=== PATIENT | female | born 1990 | race Caucasian/White ===

== ENCOUNTER 2025-02-08 14:56 | Inpatient (IN) | payer MEDICAID, SELFPAY ==
--- OUTSIDE RECORDS SUMMARY | 2025-02-08 15:03 | XMS_ITS ---
Author Name Auto Generated, Auto Generated Organization [facility] Address [address] [place] [address] Phone [phone] Care Team Providers Care Automobile Inspector Name Role Phone Artemio Esquivel Attending Physician Lita Fritz Unavailable [phone] Intake, Staff Admitting Physician Unavailable Functional Status No Results Mental Status No Results Assessments TueFebruary 08 15:03:09 EDT 2024: No Assessment Information Health Concerns Allergies and Intolerances No Known Allergies Encounters Program Name Primary Diagnosis Admission Date/Time Dis charge Date/Time Admit-Rehabilitation Major depressive disorder, recurrent severe without psychotic features TueMay 07 17:18:00 EDT 2023Jun 22 19:34:00 EDT 2023 Pre-Admit Adult Outpatient MH Roz Jul 21 15:28:00 EST 2022 Sat Jul 21 23:02:00 EST 2023 Treatment Plan Goals Over a 12 month period, kierra mcgill will improve her ability to manage basic care needs, and will develop an effective ability to manage physical health within the next 12 months Interventions food safety coordinator II/[facility]: will provide behavioral health counseling to assist client in identifying problematic symptoms and implementing effective coping mechanisms, consultation with team members to discuss, advocate, and participate in organizing clients care, crisis intervention services for helping client with managing escalation of symptoms and utilize safety plans. Skills training to help client develop new skills to cope with life stressors/manage mental health symptoms effectively.For 30 minutes, 2 X per month, for 12 months [facility] will provide skills training to help client with managing mental health symptoms/teach client how to utilize effective coping mechanisms for 60 minutes, 4 X per month, for 12 months Garment Parts Cutter Hand will provide peer support services to develop life skills through mentorship when client requests such services. Problems Active Concerns * Major depressive disorder, recurrent episode, unspecified* Code: [id number] * Start Date: * End Date: * Text: Social History Social History Observation Description Date Smoking Status Current Every Day Smoker TueMay 16 08:00:00 EDT 2023 Smoking Status Current Every Day Smoker TueMay 16 08:00:00 EDT 2023 Smoking Status Current Every Day Smoker TueMay 16 08:00:00 EDT 2023 Smoking Status Current Every Day Smoker TueMay 16 08:00:00 EDT 2023 Sex Female Sat Sep 11 07:00 :00 EST 1990 Goals Section Goals Over a 12 month period, kierra mcgill will improve her ability to manage basic care needs, and will develop an effective ability to manage physical health within the next 12 months Reason for Referral Past Medical History
[2025-02-08 15:25] VITALS: BP 127/79; PULSE 94; RESP 18; TEMP 36.9; O2SAT 97; BMI 28.3
[2025-02-08] MEDS: clonazePAM 0.5 MG TABLET PO ×2 (16:05→21:33)
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
--- NOTE | 2025-02-08 17:50 | PC.NURSE ---
Patient seen by hospitalist on 02/08/25
[2025-02-08] MEDS: Nicotine Polacrilex 2 MG GUM 4 MG BUCCAL (21:33)
[2025-02-08] MEDS: Divalproex Sodium ER 500 MG TAB.ER.24H 1000 MG PO (21:33)
[2025-02-08] MEDS: Gabapentin 100 MG CAPSULE PO (21:33)
[2025-02-08] MEDS: traZODone HCL 50 MG TABLET PO (21:33)
[2025-02-08] MEDS: Apixaban 5 MG TABLET PO (21:33)
[2025-02-08 21:42] VITALS: BP 116/69; PULSE 93; RESP 15; TEMP 36.8; O2SAT 100
[2025-02-09 07:15] VITALS: BP 105/74; PULSE 96; RESP 14; TEMP 36.8; O2SAT 95
[2025-02-09] MEDS: Nicotine 21 MG PATCH.TD24 TRANSDERMA (07:21)
[2025-02-09] MEDS: Nicotine Polacrilex 2 MG GUM 4 MG BUCCAL ×5 (07:23→21:04)
[2025-02-09 09:00] VITALS: BP 124/64; PULSE 92
[2025-02-09] MEDS: dilTIAZem HCL CD 120 MG CAP.ER.DEG PO (09:00)
[2025-02-09] MEDS: Spironolactone 25 MG TABLET PO (09:00)
[2025-02-09] MEDS: Apixaban 5 MG TABLET PO ×2 (09:00→22:02)
[2025-02-09] MEDS: clonazePAM 0.5 MG TABLET PO ×2 (09:00→22:02)
[2025-02-09] MEDS: Gabapentin 100 MG CAPSULE PO ×3 (09:00→22:02)
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
[2025-02-09 10:50] LABS: Cholesterol 159 mg/dL (<200); HDL Cholesterol 45 mg/dL (>40); LDL Cholesterol Calculated 91 mg/dL (<100); Triglycerides 116 mg/dL (<150)
[2025-02-09 11:05] LABS: Free T4 (Free Thyroxine) 1.07 ng/dL (0.71-1.85); Thyroid Stimulating Hormone 0.09 uIU/mL (0.32-4.0)
[2025-02-09] MEDS: hydrOXYzine HCL 25 MG TABLET PO (15:28)
[2025-02-09 20:00] VITALS: BP 108/64; PULSE 97; RESP 16; TEMP 36.8; O2SAT 97
[2025-02-09] MEDS: fluPHENAZine HCl 5 MG TABLET PO (22:01)
[2025-02-09] MEDS: traZODone HCL 50 MG TABLET PO (22:02)
[2025-02-09] MEDS: Divalproex Sodium ER 500 MG TAB.ER.24H 1000 MG PO (22:02)
[2025-02-10 07:21] VITALS: BP 149/63; PULSE 117; TEMP 36.4; O2SAT 100
[2025-02-10] MEDS: Nicotine 21 MG PATCH.TD24 TRANSDERMA (07:32)
[2025-02-10] MEDS: Nicotine Polacrilex 2 MG GUM 4 MG BUCCAL ×5 (07:33→21:12)
[2025-02-10 09:14] VITALS: BP 120/74; PULSE 74
[2025-02-10] MEDS: dilTIAZem HCL CD 120 MG CAP.ER.DEG PO (09:14)
[2025-02-10] MEDS: clonazePAM 0.5 MG TABLET PO ×2 (09:14→21:12)
[2025-02-10] MEDS: Apixaban 5 MG TABLET PO ×2 (09:14→21:12)
[2025-02-10] MEDS: Gabapentin 100 MG CAPSULE PO ×3 (09:14→21:13)
[2025-02-10] MEDS: Spironolactone 25 MG TABLET PO (09:14)
[2025-02-10] MEDS: Acetaminophen 325 MG TABLET 650 MG PO (09:28)
[2025-02-10 12:23] LABS: Estimated Average Glucose 111 mg/dL; Hemoglobin A1C 136.3993 umol/L; Hemoglobin A1c % 5.5 % (<6.0); Total Hemoglobin (HGBA1C) 3747.5332 umol/L
[2025-02-10 12:58] LABS: Folate 8.9 ng/mL (> or = 4.0); Vitamin B12 268 pg/mL (200-900)
--- NOTE | 2025-02-10 14:34 | PC.NURSE ---
Hospitalist consult order placed for low TSH. RN sent [employer] message to Dr. Camacho with update on this and patient's reported concern for ongoing swelling in bilat hands/ankles. Message later received from Dereck COONEY reporting consultation not needed as Free T4 is WNL. Advised to have patient follow up in 3 months outpatient to have TSH and T4 labs rechecked. No need for intervention, just observe . Message forwarded to Teresa Holder APRN. Message received.
--- NOTE | 2025-02-10 15:02 | P.EN_ITS ---
Event Note Date of Service: 02/10/25 Event Note: Pt is a 34-year-old female admitted to [facility] unit with hospitalist consult for medication adjustment for low TSH and normal free T4. Patient's labs significant for TSH low at 0.09 but free T4 WNL at 1.07. As free T4 is WNL, currently pt does not need any medication treatment for these lab results, though should follow up outpatient. If pt's TSH continues to be low and T4 is also low, pt should be worked up for pituitary gland dysfunction. If TSH is l ow/undetectable and T4 is high, pt should be worked up for hyperthyroidism. As it stands now, low TSH possible normal variant or subclinical hyperthyroidism. Pt should followup with PCP for repeat labs in 2-4 months time. Time Spent With Patient Time: Total time managing care of this patient today ____ minutes.
[2025-02-10 20:26] VITALS: BP 121/73; PULSE 118; RESP 16; TEMP 36.9; O2SAT 98
[2025-02-10] MEDS: traZODone HCL 50 MG TABLET PO (21:12)
[2025-02-10] MEDS: fluPHENAZine HCl 5 MG TABLET PO (21:12)
--- NOTE | 2025-02-10 21:47 | HO.PSYCHPN ---
Subjective Subjective Date of Service: 02/10/25 Reason For Visit: Delusional Disorder Subjective Notes: Conditional Voluntary Interim History: Pt slept through the night. Pt continues to present with delusion of being Chano. Going through spiritual journey, looking for followers who she reports know about her and are waiting for her. No behavioral concerns. No intrusive behaviors towards others. intermittently accepting medications. Medication Compliance: Yes Mental Status Exam Mental Status Exam Narrative: Appearance: wearing hospital gown, poor hygiene, in NAD Behavior: calm, cooperative Psychomotor: no agitation or retardation noted Speech: clear, normal rate/rhythm/volume, spontaneous TP: tangential, no loose associations TC: wanting to leave soon but also hoping to rest Mood: fine Affect: intense look at times, but congruent SI:denies HI: denies VH/AH: appears internally preoccupied Delusions: holiness/grandiose delusions Insight/judgment: impaired x 2. Memory/cog:alert, oriented x 4. Diagnostics Vital Signs (24Hr): Vital Signs - 24 hr 02/10/25 07:21 02/10/25 09:14 02/10/25 09:14 Temperature 97.5 F Pulse Rate 117 H 74 Respiratory Rate Blood Pressure 149/63 H 120/74 120/74 Pulse Oximetry 100 Oxygen Delivery Method Room Air 02/10/25 20:26 Temperature 98.4 F Pulse Rate 118 H Respiratory Rate 16 Blood Pressure 121/73 Pulse Oximetry 98 Oxygen Delivery Method Room Air BMI result Body Mass Index 28.3 Labs Labs: Laboratory Results - last 48 hr 02/09/25 02/10/25 09:20 11:48 Estimat Average Glucose 111 Hemoglobin A1c % 5.5 Triglycerides 116 Cholesterol 159 LDL Cholesterol, Calc 91 HDL Cholesterol 45 Vitamin B12 268 Folate 8.9 TSH 0.09 L Free T4 1.07 Medications Medications Current Medications Acetaminophen (Acetaminophen 325 Mg Tablet) 650 mg PO Q6H PRN PRN Reason: Headache/Pain, Scale 1-10 Last Admin: 02/10/25 09:28 Dose: 650 mg Al Hydroxide/Mg Hydroxide (Magnesium Hydrox/Alum Hydrox 30 Ml Oral.Susp) 30 ml PO Q6H PRN PRN Reason: Heartburn/Nausea Apixaban (Apixaban 5 Mg Tablet) 5 mg PO BID EMELINA Last Admin: 02/10/25 21:12 Dose: 5 mg Clonazepam (Clonazepam 0.5 Mg Tablet) 0.5 mg PO BID [facility] Last Admin: 02/10/25 21:12 Dose: 0.5 mg Diltiazem HCl (Diltiazem Hcl Cd 120 Mg Cap.Er.Deg) 120 mg PO DAILY [facility]; Protocol Last Admin: 02/10/25 09:14 Dose: 120 mg Divalproex Sodium (Divalproex Sodium Er 500 Mg Tab.Er.24h) 1,000 mg PO BEDTIME EMELINA Last Admin: 02/10/25 21:15 Dose: Not Given Fluphenazine HCl (Fluphenazine Hcl 5 Mg Tablet) 5 mg PO BEDTIME EMELINA Last Admin: 02/10/25 21:12 Dose: 5 mg Gabapentin (Gabapentin 100 Mg Capsule) 100 mg PO TID [facility] Last Admin: 02/10/25 21:13 Dose: 100 mg Hydroxyzine HCl (Hydroxyzine Hcl 25 Mg Tablet) 25 mg PO Q6H PRN PRN Reason: mild anxiety Last Admin: 02/09/25 15:28 Dose: 25 mg Magnesium Hydroxide (Milk Of Magnesia 30 Ml Oral.Susp) 30 ml PO DAILY PRN PRN Reason: Constipation Nicotine (Nicotine 21 Mg Patch.Td24) 21 mg TRANSDERMA DAILY PRN PRN Reason: Nicotine Cravings Last Admin: 02/10/25 07:32 Dose: 21 mg Nicotine Polacrilex (Nicotine Polacrilex 2 Mg Gum) 4 mg BUCCAL Q2H PRN PRN Reason: Nicotine Cravings Last Admin: 02/10/25 21:12 Dose: 4 mg Spironolactone (Spironolactone 25 Mg Tablet) 25 mg PO DAILY [facility]; Protocol Last Admin: 02/10/25 09:14 Dose: 25 mg Trazodone HCl (Trazodone Hcl 50 Mg Tablet) 50 mg PO BEDTIME MRX1 PRN PRN Reason: Insomnia Last Admin: 02/10/25 21:12 Dose: 50 mg Allergies Allergies Allergy/AdvReac Type Severity Reaction Status Date / Time Penicillins Allergy Unknown Verified 02/08/25 15:04 sulfamethoxazole Allergy Unknown Verified 02/08/25 15:04 [From Bactrim] trimethoprim [From Bactrim] Allergy Unknown Verified 02/08/25 15:04 Assessment & Plan Assessment & Plan (1) Schizoaffective disorder, bipolar type: Status: Acute Code(s): F25.0 - Schizoaffective disorder, bipolar type Plan Homa is a 34 year-old trans female who was brought on sect 12a by police to [facility] due to presenting with delusions of being Chano and going through a spiritual journey. No safety concerns reported from documentation from [facility] in terms of aggression to self or others, suicidal or homicidal ideation or gravely disable. She is homeless but no signs of imminent harm due to impaired judgment. it does seem that she has been able to secure food and has self presented to hospital when not feeling well. She does present with complex delusional believe in spiritual/holiness themes with some grandiose ideas of being a savior and looking for her followers. We discussed risks, benefits and alternative treatment options, pt agreed for time being to continue depakote and prolixin. 02/10 continue tx. sect 12b. no aggression towards self or others. Reason for continued inpatient stay Substantial Risk for: inability to function Time Spent With Patient Time: Total time managing care of this patient today ____ minutes.
[2025-02-11 07:15] VITALS: BP 130/68; PULSE 96; RESP 16; TEMP 36.7; O2SAT 98
[2025-02-11 07:20] VITALS: BP 130/68; PULSE 96
[2025-02-11] MEDS: dilTIAZem HCL CD 120 MG CAP.ER.DEG PO (07:20)
[2025-02-11] MEDS: Nicotine Polacrilex 2 MG GUM 4 MG BUCCAL ×4 (07:39→17:34)
[2025-02-11 08:16] VITALS: BP 130/68
[2025-02-11] MEDS: Spironolactone 25 MG TABLET PO (08:16)
[2025-02-11] MEDS: Apixaban 5 MG TABLET PO ×2 (08:16→21:44)
[2025-02-11] MEDS: Gabapentin 100 MG CAPSULE PO ×3 (08:17→21:44)
[2025-02-11] MEDS: clonazePAM 0.5 MG TABLET PO (08:17)
[2025-02-11] MEDS: Nicotine 21 MG PATCH.TD24 TRANSDERMA (08:46)
[2025-02-11] MEDS: Acetaminophen 325 MG TABLET 650 MG PO (08:46)
[2025-02-11] MEDS: Loratadine 10 MG TABLET PO (12:12)
--- NOTE | 2025-02-11 12:21 | P.PNPSI_ITS ---
Subjective Subjective Date of Service: 02/11/25 Reason For Visit: Delusional Disorder Interim History: feels she does not have john as sleep is not affected. feeling very heavy and slow on current regimen, blaming it on VPA. agreeable to decrease klonopin from 0.5 BID to 0.25 BID and VPA from 1000 mg QHS to 750 mg QHS. 12b up wed, planning to discharge then. per staff, low TSH but T4 WNL. c/o hand/ankle swelling. refused VPA. Mental Status Exam Mental Status Exam Narrative: Appearance: wearing hospital gown, good hygiene, in NAD Behavior: calm, cooperative Psychomotor: no agitation or retardation noted Speech: clear, normal rate/rhythm/volume, spontaneous TP: tangential, no loose associations TC: wanting to leave soon but also hoping to rest Mood: fine Affect: intense look at times, but congruent SI:denies HI: denies VH/AH: appears internally preoccupied Delusions: samaritan/grandiose delusions Insight/judgment: impaired x 2. Memory/cog:alert, oriented x 4. Diagnostics Vital Signs (24Hr): Vital Signs - 24 hr 02/10/25 20:26 02/11/25 07:15 02/11/25 07:20 Temperature 98.4 F 98.0 F Pulse Rate 118 H 96 96 Respiratory Rate 16 16 Blood Pressure 121/73 130/68 130/68 Pulse Oximetry 98 98 Oxygen Delivery Method Room Air Room Air 02/11/25 08:16 Temperature Pulse Rate Respiratory Rate Blood Pressure 130/68 Pulse Oximetry Oxygen Delivery Method BMI result Body Mass Index 28.3 Labs Labs: Laboratory Results - last 48 hr 02/10/25 11:48 Estimat Average Glucose 111 Hemoglobin A1c % 5.5 Vitamin B12 268 Folate 8.9 Medications Medications Current Medications Acetaminophen (Acetaminophen 325 Mg Tablet) 650 mg PO Q6H PRN PRN Reason: Headache/Pain, Scale 1-10 Last Admin: 02/11/25 08:46 Dose: 650 mg Al Hydroxide/Mg Hydroxide (Magnesium Hydrox/Alum Hydrox 30 Ml Oral.Susp) 30 ml PO Q6H PRN PRN Reason: Heartburn/Nausea Apixaban (Apixaban 5 Mg Tablet) 5 mg PO BID EMELINA Last Admin: 02/11/25 08:16 Dose: 5 mg Clonazepam (Clonazepam 0.5 Mg Tablet) 0.25 mg PO BID [facility] Diltiazem HCl (Diltiazem Hcl Cd 120 Mg Cap.Er.Deg) 120 mg PO DAILY [facility]; Protocol Last Admin: 02/11/25 07:20 Dose: 120 mg Divalproex Sodium (Divalproex Sodium Er 250 Mg Tab.Er.24h) 750 mg PO BEDTIME EMELINA Fluphenazine HCl (Fluphenazine Hcl 5 Mg Tablet) 5 mg PO BEDTIME EMELINA Last Admin: 02/10/25 21:12 Dose: 5 mg Gabapentin (Gabapentin 100 Mg Capsule) 100 mg PO TID EMELINA Last Admin: 02/11/25 08:17 Dose: 100 mg Hydroxyzine HCl (Hydroxyzine Hcl 25 Mg Tablet) 25 mg PO Q6H PRN PRN Reason: mild anxiety Last Admin: 02/09/25 15:28 Dose: 25 mg Loratadine (Loratadine 10 Mg Tablet) 10 mg PO DAILY EMELINA Last Admin: 02/11/25 12:12 Dose: 10 mg Magnesium Hydroxide (Milk Of Magnesia 30 Ml Oral.Susp) 30 ml PO DAILY PRN PRN Reason: Constipation Nicotine (Nicotine 21 Mg Patch.Td24) 21 mg TRANSDERMA DAILY PRN PRN Reason: Nicotine Cravings Last Admin: 02/11/25 08:46 Dose: 21 mg Nicotine Polacrilex (Nicotine Polacrilex 2 Mg Gum) 4 mg BUCCAL Q2H PRN PRN Reason: Nicotine Cravings Last Admin: 02/11/25 10:18 Dose: 4 mg Spironolactone (Spironolactone 25 Mg Tablet) 25 mg PO DAILY [facility]; Protocol Last Admin: 02/11/25 08:16 Dose: 25 mg Trazodone HCl (Trazodone Hcl 50 Mg Tablet) 50 mg PO BEDTIME MRX1 PRN PRN Reason: Insomnia Last Admin: 02/10/25 21:12 Dose: 50 mg Allergies Allergies Allergy/AdvReac Type Severity Reaction Status Date / Time Penicillins Allergy Unknown Verified 02/08/25 15:04 sulfamethoxazole Allergy Unknown Verified 02/08/25 15:04 [From Bactrim] trimethoprim [From Bactrim] Allergy Unknown Verified 02/08/25 15:04 Assessment & Plan Assessment & Plan (1) Schizoaffective disorder, bipolar type: Status: Acute Code(s): F25.0 - Schizoaffective disorder, bipolar type Plan Homa is a 34 year-old trans female who was brought on sect 12a by police to [facility] due to presenting with delusions of being Chano and going through a spiritual journey. No safety concerns reported from documentation from [facility] in terms of aggression to self or others, suicidal or homicidal ideation or gravely disable. She is homeless but no signs of imminent harm due to impaired judgment. it does seem that she has been able to secure food and has self presented to hospital when not feeling well. She does present with complex delusional believe in spiritual/samaritan themes with some grandiose ideas of being a savior and looking for her followers. We discussed risks, benefits and alternative treatment options, pt agreed for time being to continue depakote and prolixin. 02/10 continue tx. sect 12b. no aggression towards self or others. 02/11: stably delusional. start loratadine 10 mg daily per pt request. feeling slowed/heavy, decrease klonopin to 0.25 BID and VPA to 750 QHS. refusing VPA in any case. 12b up weds, DC weds. pt planning to go to [facility] to visit a friend, can ask father for money if she neeeds it. Reason for continued inpatient stay Substantial Risk for: inability to function Time Spent With Patient Time: Total time managing care of this patient today __25__ minutes.
[2025-02-11 19:27] VITALS: BP 123/79; PULSE 100; RESP 16; TEMP 36.4; O2SAT 97
[2025-02-11] MEDS: traZODone HCL 50 MG TABLET PO (21:44)
[2025-02-11] MEDS: clonazePAM 0.5 MG TABLET 0.25 MG PO (21:44)
[2025-02-11] MEDS: Divalproex Sodium ER 250 MG TAB.ER.24H 750 MG PO (21:44)
[2025-02-11] MEDS: fluPHENAZine HCl 5 MG TABLET PO (21:44)
[2025-02-12] MEDS: Nicotine Polacrilex 2 MG GUM 4 MG BUCCAL ×5 (07:47→20:18)
[2025-02-12 08:00] VITALS: BP 117/60; PULSE 73; RESP 16; TEMP 36.9; O2SAT 97
[2025-02-12 08:16] LABS: MANUAL DIFF FLAG NO
[2025-02-12 08:24] LABS: Basophils Percent Auto 0.6 % (0-2); Eosinophils Absolute Auto 0.1 X10*3/uL (0.0-0.4); Eosinophils Percent Auto 2.3 % (0-4); Hematocrit 47.5 % (37.0-47.0); Hemoglobin 15.5 g/dl (12.0-16.0); Imm Gran Abs Auto 0.02 X10*3/uL (0.00-0.03); Imm Gran Pct Auto 0.4 % (0.0-0.4); Lymphocytes Absolute Auto 1.9 X10*3/uL (1.2-4.9); Lymphocytes Percent Auto 35.5 % (20-40); Mean Corpuscular HGB Conc 32.6 g/dl (31.0-35.0); Mean Corpuscular Hemoglobin 27.6 pg (27.0-33.0); Mean Corpuscular Volume 84.5 fL (80.0-98.0); Mean Platelet Volume 11.4 fL (9.4-12.3); Monocytes Absolute Auto 0.5 X10*3/uL (0.1-1.2); Neutrophils Absolute Auto 2.8 x10*3/uL (2.0-8.3); Neutrophils Percent Auto 52.2 % (45-73); Platelet Count 171 X10*3/uL (160-400); Red Blood Count 5.62 X10*6/uL (4.20-5.50); White Blood Count 5.3 X10*3/uL (4.8-10.8)
[2025-02-12 08:37] VITALS: BP 117/60; PULSE 73
[2025-02-12 08:37] LABS: Anion Gap 13 (12-20); Blood Urea Nitrogen 16 mg/dL (9-16); Calcium 9.2 mg/dL (8.4-10.2); Carbon Dioxide 29 mmol/L (22-29); Chloride 103 mmol/L (96-108); Creatinine Clr Calc Pharmacy 135.8; Estimated Glomerular Filt Rate > 60; Glucose Random 90 mg/dL (60-115); Potassium 4.6 mmol/L (3.3-5.1); Sodium 140 mmol/L (135-145)
[2025-02-12] MEDS: dilTIAZem HCL CD 120 MG CAP.ER.DEG PO (08:37)
[2025-02-12] MEDS: Apixaban 5 MG TABLET PO ×2 (08:37→20:46)
[2025-02-12 08:38] VITALS: BP 111/72
[2025-02-12] MEDS: Loratadine 10 MG TABLET PO (08:38)
[2025-02-12] MEDS: Spironolactone 25 MG TABLET PO (08:38)
[2025-02-12] MEDS: clonazePAM 0.5 MG TABLET 0.25 MG PO ×2 (08:39→20:46)
[2025-02-12] MEDS: Gabapentin 100 MG CAPSULE PO ×3 (08:39→20:46)
[2025-02-12] MEDS: Nicotine 21 MG PATCH.TD24 TRANSDERMA (09:27)
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
[2025-02-12 20:00] VITALS: BP 131/66; PULSE 103; RESP 18; TEMP 36.6; O2SAT 100
[2025-02-12] MEDS: Divalproex Sodium ER 250 MG TAB.ER.24H 750 MG PO (20:45)
[2025-02-12] MEDS: hydrOXYzine HCL 25 MG TABLET PO (20:46)
[2025-02-12] MEDS: fluPHENAZine HCl 5 MG TABLET PO (20:46)
[2025-02-12] MEDS: traZODone HCL 50 MG TABLET PO (20:46)
[2025-02-13] MEDS: Nicotine Polacrilex 2 MG GUM 4 MG BUCCAL (07:51)
[2025-02-13 07:56] VITALS: BP 121/69; PULSE 89; RESP 16; TEMP 36.9; O2SAT 99
[2025-02-13] MEDS: clonazePAM 0.5 MG TABLET 0.25 MG PO (08:40)
[2025-02-13] MEDS: Spironolactone 25 MG TABLET PO (08:41)
[2025-02-13] MEDS: Apixaban 5 MG TABLET PO (08:41)
[2025-02-13] MEDS: dilTIAZem HCL CD 120 MG CAP.ER.DEG PO (08:41)
[2025-02-13] MEDS: Gabapentin 100 MG CAPSULE PO (08:41)
[2025-02-13] MEDS: Loratadine 10 MG TABLET PO (08:41)
== END 2025-02-13 11:10 | disposition home or self-care (01) | DRG 750 ==
PROVIDERS: Nurse Practitioner Family; Admitting Provider Psychiatry & Neurology Psychiatry; Visit Provider Psychiatry & Neurology Psychiatry
DX: F25.0 Schizoaffective disorder, bipolar type (principal); I48.11 Longstanding persistent atrial fibrillation; F64.0 Transsexualism; F17.210 Nicotine dependence, cigarettes, uncomplicated; Z59.02 Unsheltered homelessness; Z71.6 Tobacco abuse counseling; Z79.01 Long term (current) use of anticoagulants; Z79.899 Other long term (current) drug therapy
CPT/HCPCS: 36415; 80048; 80061; 82607; 82746; 83036; 84439; 84443; 85025

== ENCOUNTER → 2025-02-08 14:56 | Outpatient (BNV) | payer SELFPAY | PROVIDERS: Admitting Provider Psychiatry & Neurology Psychiatry; Visit Provider Nurse Practitioner Family | DX: Z00.8 Encounter for other general examination (principal) | CPT/HCPCS: 99429; 99499 ==

== ENCOUNTER → 2025-02-08 14:56 | Outpatient (BNV) | payer OTHER, SELFPAY | PROVIDERS: Admitting Provider Psychiatry & Neurology Psychiatry; Visit Provider Social Worker | DX: F25.0 Schizoaffective disorder, bipolar type (principal) | CPT/HCPCS: 99231; 99232 ==